=== PATIENT | male | born 1995 | race African-American/Black ===

== ENCOUNTER 2018-12-21 15:58 | Emergency (ER) | payer OTHER, MEDICAID, SELFPAY ==
[2018-12-21 15:59] VITALS: BP 104/57; PULSE 75; RESP 14; TEMP 36.8; O2SAT 100
--- NOTE | 2018-12-21 16:04 | DI.RAD.S_ITS ---
PROCEDURE: XR CHEST 2V INDICATIONS: chest pain TECHNIQUE: 2 views of the chest were acquired. COMPARISON: None. FINDINGS: Surgical changes and devices: None. Lungs and pleura: Lungs are clear. No pleural effusions or pneumothorax. Mediastinum: Mediastinal contours are normal. Heart size is normal. Bones and chest wall: No suspicious bony abnormalities. Soft tissues appear unremarkable. IMPRESSION: No acute process. Dictated by: Trevon Lamar M.D. on 12/21/2018 at 16:37 Approved by: Trevon Lamar M.D. on 12/21/2018 at 16:38
[2018-12-21 17:19] LABS: Add Manual Diff / Slide Review NO; Basophils Absolute Auto 0 /uL (0-100); Basophils Percent Auto 0.6 % (0-2); Eosinophils Absolute Auto 100 /uL (0-450); Eosinophils Percent Auto 1.6 % (2-4); Hematocrit 44.7 % (41-53); Hemoglobin 14.7 g/dL (13.5-17.5); Lymphocytes Absolute Auto 1600 /uL (1100-4500); Lymphocytes Percent Auto 37.5 % (25-40); Mean Corpuscular HGB Conc 32.8 % (30-36); Mean Corpuscular Hemoglobin 28.8 PG (26-34); Mean Corpuscular Volume 87.7 fL (80-100); Monocytes Absolute Auto 400 /uL (0-900); Monocytes Percent Auto 10.1 % (3-14); Neutrophils Absolute Auto 2200 /uL (1500-7000); Neutrophils Percent Auto 50.2 % (50-75); Platelet Count 285 X10^3/uL (150-400); Red Cell Distribution Width 12.7 % (11.6-14.8); White Blood Cell Count 4.4 X10^3/uL (4.5-11.0)
[2018-12-21 17:25] LABS: Alanine Aminotransferase 6 IU/L (21-72); Albumin 4.9 g/dL (3.5-5.0); Albumin Globulin Ratio 1.2 (1.0-2.8); Alkaline Phosphatase 56 U/L (38-126); Aspartate Aminotransferase 22 IU/L (17-59); BUN Creatinine Ratio 15.5 (6-22); Bilirubin Total 0.9 mg/dL (0.2-1.3); Blood Urea Nitrogen 17 mg/dL (9-20); Calcium 9.8 mg/dL (8.4-10.2); Carbon Dioxide 31 mmol/L (22-32); Chloride 103 mmol/L (98-107); Creatine Kinase 291 U/L (55-170); Estimated Glomerular Filt Rate > 60.0 mL/min (>60); Glucose 75 mg/dL (70-100); HEMOLYSIS < 15 (0-50); Sodium 145 mmol/L (137-145); Total Protein 8.9 g/dL (6.3-8.2)
[2018-12-21 17:37] LABS: Troponin I < 0.012 ng/mL (0.01-0.034)
[2018-12-21 17:41] LABS: CKMB % Relative Index < 0.1 % (1.5-5.0); Creatine Kinase MB < 0.22 ng/mL (<2.37)
--- NOTE | 2018-12-21 17:42 | ED_ITS ---
HPI - Chest Pain General Chief Complaint: Chest Pain Stated Complaint: LEFT ARM AND LEG FEEL FUNNY DIZZY Time Seen by Provider: 12/21/18 17:40 Source: patient Mode of arrival: ambulatory Limitations: no limitations History of Present Illness HPI narrative: 23-year-old otherwise healthy male here for evaluation appro ximately 1 week of fatigue and occasional chest discomfort and bilateral tingling in his lower extremities. Patient states that approximately 2 weeks ago he started drinking energy drinks on a daily basis. He stated that he started to not feel very well after that so he quit drinking these 1 week ago. Symptoms a presented for today been going on for the past week. Describes a left-sided chest pressure that is occasional. The tingling in his lower extremities her secondary to fatigue per the patient. He states he has been working quite a bit. Picking up extra shifts. States that he has quite a bit of stress at work. States that he is not sleeping well at night. Related Data Allergies Allergy/AdvReac Type Severity Reaction Status Date / Time No Known Allergies Allergy Uncoded 09/23/17 12:44 Review of Systems Constitutional Reports fatigue, Denies fever(s) and Reports lethargy Cardiovascular Reports chest pain and Denies dyspnea Respiratory Denies dyspnea Gastrointestinal Gastrointestinal: Denies abdominal pain, Denies nausea and Denies vomiting Genitourinary Denies dysuria Musculoskeletal Reports myalgias, Denies arthralgias, Denies numbness and Reports tingling Integumentary/Breasts Denies rash Neurologic Denies numbness and Reports tingling Endocrine Reports fatigue Hematologic/Lymphatic Denies easy bleeding and Denies easy bruising Allergic/Immunologic Denies urticaria [facility] Medical History Patient denies medical problems (Acute) Social History Smoking Status: Former smoker Social History Smoking Status: Former smoker Exam Initial Vital Signs Initial Vital Signs: Vital Signs Temperature 98.2 F 12/21/18 15:59 Pulse Rate 75 12/21/18 15:59 Respiratory Rate 14 12/21/18 15:59 Blood Pressure 104/57 L 12/21/18 15:59 Pulse Oximetry 100 12/21/18 15:59 Const General: cooperative, healthy appearing, comfortable, well developed, well groomed and No acute distress Orientation: alert, awake and oriented x3 HENMT Head: normal to inspection and normocephalic Resp Effort & Inspection: normal respiratory effort Auscultation: clear to auscultation bilaterally Cardio Rate: regular rate Rhythm: regular rhythm GI Inspection: non-distended Palpation: soft and No firm Skin Lesions: no lesions Rashes: no rashes Neuro General: alert and awake Cognition: normal cognition Speech: speech normal Motor: muscle tone normal throughout Extrem General: normal to inspection and capillary refill normal Psych Appearance: grossly normal and well kempt Course Orders Ordered: ED Orders 12/21/18 16:04 XR chest 2V Stat EKG-12 Lead Stat 12/21/18 17:07 Complete Blood Count AUTO DIFF Stat Comprehensive Metabolic Panel Stat Troponin & CK Cardiac Panel Stat Vital Signs - 8 hr 12/21/18 18:17 Pulse Rate 50 L Respiratory Rate 16 Blood Pressure [Right Arm] 128/76 Pulse Oximetry 100 MDM - Chest Pain Lab Data Attestation: I reviewed the patient's lab results. Result diagrams: 12/21/18 17:07 12/21/18 17:07 Lab Results 12/21/18 12/21/18 Range/Units 17:07 17:07 WBC 4.4 L (4.5-11.0) X10^3/uL RBC 5.10 (4.5-5.9) X10^6/uL Hgb 14.7 (13.5-17.5) g/dL Hct 44.7 (41-53) % MCV 87.7 (80-100) fL MCH 28.8 (26-34) PG MCHC 32.8 (30-36) % RDW 12.7 (11.6-14.8) % Plt Count 285 (150-400) X10^3/uL Neut % (Auto) 50.2 (50-75) % Lymph % (Auto) 37.5 (25-40) % [place] % (Auto) 10.1 (3-14) % Eos % (Auto) 1.6 L (2-4) % Baso % (Auto) 0.6 (0-2) % Neut # (Auto) 2200 (5903-7595) /uL Lymph # (Auto) 1600 (7882-4826) /uL [place] # (Auto) 400 (0-900) /uL Eos # (Auto) 100 (0-450) /uL Baso # (Auto) 0 (0-100) /uL Sodium 145 (137-145) mmol/L Potassium 4.0 (3.4-5.1) mmol/L Chloride 103 (98-107) mmol/L Carbon Dioxide 31 (22-32) mmol/L BUN 17 (9-20) mg/dL Creatinine 1.10 (0.66-1.25) mg/dL Estimated GFR > 60.0 (>60) mL/min BUN/Creatinine Ratio 15.5 (6-22) Glucose 75 (70-100) mg/dL Calcium 9.8 (8.4-10.2) mg/dL Total Bilirubin 0.9 (0.2-1.3) mg/dL AST 22 (17-59) IU/L ALT 6 L (21-72) IU/L Alkaline Phosphatase 56 (38-126) U/L Total Creatine Kinase 291 H (55-170) U/L CK-MB (CK-2) < 0.22 (<2.37) ng/mL CK-MB (CK-2) Rel Index < 0.1 L (1.5-5.0) % Troponin I < 0.012 (0.01-0.034) ng/mL Total Protein 8.9 H (6.3-8.2) g/dL Albumin 4.9 (3.5-5.0) g/dL Globulin 4.0 (1.7-4.1) g/dL Albumin/Globulin Ratio 1.2 (1.0-2.8) Imaging Data Chest x-ray: Radiologist's impression: Robin MohrMehrdad L 23 M [address] [address] XRay Report Signed Patient: Mehrdad Kelly Iv LMR#: [id number] : 1995Acct:[id number] Age/Sex: 23 / MDate of Service: 12/21/18 Loc: ED Accession Number: [id number] Procedure: XR chest 2V Ordering Provider: Erica Restrepo MD PROCEDURE: XR CHEST 2V INDICATIONS: chest pain TECHNIQUE: 2 views of the chest were acquired. COMPARISON: None. FINDINGS: Surgical changes and devices: None. Lungs and pleura: Lungs are clear. No pleural effusions or pneumothorax. Mediastinum: Mediastinal contours are normal. Heart size is normal. Bones and chest wall: No suspicious bony abnormalities. Soft tissues appear unremarkable. IMPRESSION: No acute process. Dictated by: Trevon Lamar M.D. on 12/21/2018 at 16:37 Approved by: Trevon Lamar M.D. on 12/21/2018 at 16:38 ECG Data Attestation: I personally reviewed and interpreted this ECG as follows: Prior ECG tracings: not available for review Interpretation: Sinus rhythm Ventricular rate is 62 P.r. interval 117 milliseconds Normal QRS Normal QTC Normal axis No ST T wave changes MDM Narrative Medical decision making narrative: Patient is low risk for ACS. I do suspect that his symptoms are related to anxiety, tension, lack of sleep, not eating well. Had a long discussion with him regarding this symptoms. Provided a note for work for the next several days so that he could get some sleep. We did talk about the use of caffeine and how this can affect sleep. Will hold on further workup for now. Patient expressed understanding and agreement with plan. Discharge Plan Departure Patient Disposition: Home Clinical Impression: Fatigue Qualifiers: Fatigue type: unspecified Qualified Code(s): R53.83 - Other fatigue Chest pain Qualifiers: Chest pain type: unspecified Qualified Code(s): R07.9 - Chest pain, unspecified Discharge Date/Time: 12/21/18 18:34 Interventions: ED Discharge Assessment Last Done: 12/21/18 18:34 Instructions: DI for Fatigue Activity Restrictions/Additional Instructions: recommend that you refrain from smoking and other stimulants. Contact [phone] to help with establishing a primary care provider. Return to the ER for any new or worsening symptoms. Stand Alone Forms: Work Release Note
[2018-12-21 18:17] VITALS: BP 128/76; PULSE 50; RESP 16; O2SAT 100
[2018-12-27 11:08] LABS: Monotest Negative (Negative)
[2018-12-27 11:29] LABS: Thyroid Stimulating Hormone 0.97 uIU/mL (0.47-4.68)
== END 2018-12-21 18:34 | disposition home or self-care (01) ==
PROVIDERS: Emergency Medicine; Physician Assistant; Emergency Provider Emergency Medicine
DX: R07.9 Chest pain, unspecified (principal); R53.83 Other fatigue
CPT/HCPCS: 36415; 71046; 80053; 82550; 82553; 84443; 84484; 85025; 86318; 93005; 99282; 99285